=== PATIENT | male | born 1975 | race Caucasian/White ===

== ENCOUNTER 2016-12-21 14:34 | Observation (INO) | payer OTHER ==
[2016-12-21] MEDS ORDERED: SODIUM CHLORIDE 1,000 ML IV ONE (14:52)
--- NOTE | 2016-12-21 14:59 | PDOC ---
History of Present Illness - General History Source: Patient, Family Exam Limitations: No Limitations - History of Present Illness Initial Comments: 12/21/16 15:51 The patient is a 41 year old male presenting with family, with no significant past medical history, who presents to the emergency department with Left lower extremity numbness, dizziness, chest pain, shortness of breath and diaphoresis onset 1 hour prior to presentation. He states that he was outside eating and playing with his children when the symptoms began. He states that he rushed into the house where he lost consciousness while laying in the bed. He notes that he regained consciousness roughly 10 minutes later. He describes his chest pain as a burning sensation, moderate in severity, without radiation or modifying factors. Upon presentation the patient notes that all of his symptoms had resolved except for the left lower extremity numbness. He states that the numbness has alleviated and only has the numbness localized on the foot. He is unable to bend his knee. He denies ingestion alcohol, tobacco or drugs today. He denies any recent sickness and has been taking solids and liquids without any complications. He states that during the past 3 months he has lost 10 pounds and has been having persistent night sweats. The patient denies headache, fever, chills, nausea, vomit, diarrhea and constipation. Denies dysuria, frequency, urgency and hematuria. Allergies: None Past surgical history: None reported Social history: Denies alcohol, tobacco or drug use reported <Baldomero Diaz - Last Filed: 12/21/16 16:09> <Miles Rushing - Last Filed: 12/21/16 17:06> - General Chief Complaint: Weakness Stated Complaint: PARALYSIS Time Seen by Provider: 12/21/16 14:52 Past History <Baldomero Diaz - Last Filed: 12/21/16 16:09> - Past Medical History Thyroid Disease: No - Psycho/Social/Smoking Cessation Hx Anxiety: No Suicidal Ideation: No Smoking History: Never smoked Have you smoked in the past 12 months: No Information on smoking cessation initiated: No Hx Alcohol Use: No Drug/Substance Use Hx: No Substance Use Type: None <Miles Rushing - Last Filed: 12/21/16 17:06> - Past Medical History Allergies/Adverse Reactions: Allergies Allergy/AdvReac Type Severity Reaction Status Date / Time No Known Allergies Allergy Verified 04/29/17 14:49 Review of Systems - Review of Systems Constitutional: Yes: Night Sweats, Unexplained wgt Loss (10 lbs over 3 months). No: Chills, Fever HEENTM: No: Recent change in vision Respiratory: No: Cough, Shortness of Breath Cardiac (ROS): Yes: Chest Pain, Lightheadedness, Syncope. No: Edema ABD/GI: Yes: Nausea. No: Vomiting : No: Burning, Frequency Neurological: No: Headache Psychiatric: No: Anxiety, Depression All Other Systems: Reviewed and Negative <Miles Rushing - Last Filed: 12/21/16 17:06> *Physical Exam - Vital Signs Last Vital Signs Temp Pulse Resp BP Pulse Ox 90 18 144/99 100 12/21/16 14:35 12/21/16 14:35 12/21/16 14:35 12/21/16 14:35 - Physical Exam Comments: 12/21/16 15:38 GENERAL: The patient is awake, alert, and fully oriented, in no acute distress. HEAD: Normal with no signs of trauma. EYES: Pupils equal, round and reactive to light, extraocular movements intact, sclera anicteric, conjunctiva clear with no pallor. ENT: Ears normal, nares patent, oropharynx clear without exudates. Moist mucous membranes. NECK: Normal range of motion, supple without lymphadenopathy, JVD, or masses. LUNGS: Breath sounds equal, clear to auscultation bilaterally. No wheeze/ crackles. HEART: Regular rate and rhythm, normal S1 and S2 without murmur or rub. ABDOMEN: Soft/nontender/nondistended. BS wnl. No guarding or rebound. No palpable masses. No hepatosplenomegaly. EXTREMITIES: (+) Unable to flex his knee or plantar or flex his foot, no edema. No clubbing or cyanosis. No cords, erythema, or tenderness. Sensation decreased distal to the ankle, unable to sense touching or pain. Bounding dp and pt pulses. Easily palpable dp and pt pulses. NEUROLOGICAL: Cranial nerves II through XII grossly intact. Normal speech. PSYCH: Normal mood, normal affect. SKIN: Warm, Dry, normal turgor, no rashes or lesions noted. <Baldomero Diaz - Last Filed: 12/21/16 16:09> - Vital Signs Last Vital Signs Temp Pulse Resp BP Pulse Ox 90 18 144/99 100 12/21/16 14:35 12/21/16 14:35 12/21/16 14:35 12/21/16 14:35 <Miles Rushing - Last Filed: 12/21/16 17:06> Heart Score/ECG Review #1 ECG reviewed & interpreted by me at: 14:47 General ECG Interpretation: Sinus Rhythm, Normal Rate (86), Normal Intervals ( qtc 418, ? LVH, early repol), No acute ischemic changes <Miles Rushing - Last Filed: 12/21/16 17:06> ED Treatment Course - LABORATORY CBC & Chemistry Diagram: 12/21/16 14:59 12/21/16 14:59 - ADDITIONAL ORDERS Additional order review: Laboratory Results 12/21/16 12/21/16 12/21/16 15:00 14:59 14:59 INR Sodium Potassium Chloride Carbon Dioxide Anion Gap BUN Creatinine Creat Clearance w eGFR Random Glucose Calcium Magnesium Total Bilirubin AST ALT Total Protein Albumin Urine Color Ltyellow Urine Appearance Clear Urine pH 7.0 Ur Specific [place] 1.015 Urine Protein Negative Urine Glucose (UA) Negative Urine Ketones Trace H Urine Blood 1+ H Urine Nitrite Negative Urine Bilirubin Negative Urine Urobilinogen 2.0 e.u/dl Ur Leukocyte Esterase Negative Urine RBC 2 Urine WBC 1 Ur Epithelial Cells Rare Urine Mucus Rare Opiates Screen Negative Methadone Screen Negative Barbiturate Screen Negative Phencyclidine Screen Negative Ur Amphetamines Screen Negative MDMA (Ecstasy) Screen Negative Benzodiazepines Screen Negative Cocaine Screen Negative U Marijuana (THC) Screen Negative Alcohol, Quantitative 122.8 H* 12/21/16 12/21/16 14:59 14:59 INR 1.04 Sodium 144 Potassium 4.1 Chloride 109 H Carbon Dioxide 25 Anion Gap 10 BUN 14 Creatinine 1.1 Creat Clearance w eGFR > 60 Random Glucose 80 Calcium 8.5 Magnesium 2.4 Total Bilirubin 0.4 AST 28 ALT 52 Total Protein 7.1 Albumin 3.7 Urine Color Urine Appearance Urine pH Ur Specific [place] Urine Protein Urine Glucose (UA) Urine Ketones Urine Blood Urine Nitrite Urine Bilirubin Urine Urobilinogen Ur Leukocyte Esterase Urine RBC Urine WBC Ur Epithelial Cells Urine Mucus Opiates Screen Methadone Screen Barbiturate Screen Phencyclidine Screen Ur Amphetamines Screen MDMA (Ecstasy) Screen Benzodiazepines Screen Cocaine Screen U Marijuana (THC) Screen Alcohol, Quantitative 12/21/16 14:59 RBC 5.02 MCV 88.1 MCHC 32.9 RDW 13.7 MPV 8.0 Neutrophils % 36.4 L Lymphocytes % 42.0 H Monocytes % 14.9 H Eosinophils % 5.4 H Basophils % 1.3 - RADIOLOGY Radiograph Interpretation: 12/21/16 16:[address] Reviewed by: Dr. Leopoldo Galo Impression: No CT evidence of acute intracranial pathology. Mild to moderate mucosal thickening is seen within the partially visualized anterior ethmoid sinuses and left inferior frontal sinus. <Baldomero Diaz - Last Filed: 12/21/16 16:09> - LABORATORY CBC & Chemistry Diagram: 12/21/16 14:59 12/21/16 14:59 - RADIOLOGY Radiology Studies Ordered: Category Date Time Status HEAD CT WITHOUT CONTRAST [CT] Stat CT Scan 12/21/16 14:54 Ordered CHEST PA & LAT [RAD] Stat Radiology 12/21/16 14:53 Ordered SPINE-LUMBAR SACRAL [RAD] Stat Radiology 12/21/16 14:54 Ordered <Miles Rushing - Last Filed: 12/21/16 17:06> Medical Decision Making - Medical Decision Making 12/21/16 15:08 A portion of this note was documented by scribe services under my direction. I have reviewed the details of the note, within reason, and agree with the documentation with the following case summary and management plan written by me. Healthy 41-year-old male with no significant past medical history brought in by EMS for syncopal episode. Patient was in his usual state of normal health, was outside when he began feeling lightheaded, went inside and developed chest pain with diaphoresis and nausea and then loss of consciousness. The entire episode lasted 15-20 minutes, EMS was activated in the meantime, and he presents now without any complaints whatsoever except for left foot numbness and weakness. History of similar episodes, reports he saw his primary physician at [facility] this week, was felt to have possible depression. He denies any drug or alcohol intake, no reported seizure activity as per family member, but he does admit to night sweats over the last few weeks and 10 pound weight loss over the last 3 months. Afebrile. Vital signs normal. Alert and conversant, speaking full sentences clearly, in no acute distress Conjunctiva are slightly injected bilaterally, no jaundice Neck is supple Cardiopulmonary exam is normal Abdomen is benign Neurological exam is normal except for left lower extremity: Patient is unable to flex his left knee or dorsiflex/plantar flex his left foot. There is a sensory level below the ankle, loss of sensation to touch and pain. DP and TP pulses are easily palpable. 41-year-old male with syncopal episode, now with residual numbness and weakness in the LLE that does not follow any particular dermatome. Question seizure with partial Hong's paralysis, question focal brain neoplasm given the constitutional type symptoms, question cardiopulmonary etiology with syncope and vascular process in the lumbar spine? No indication for code zeng EKG shows no acute ischemic changes Labs, urinalysis including tox screen Chest x-ray, LS-spine x-ray, CT head Reassess 12/21/16 16:14 Labs are within normal limits, no leukocytosis, CK is normal and troponin is normal, urinalysis and urine tox are negative, alcohol level notably 123. CT shows some sinusitis but no intracranial pathology. Clinically improving, now able to flex his L knee, but still with motor/sensory deficit in the L foot. Approached pt about his etoh level - states he was drinking yesterday, not today. Denies daily etoh. Question now whether this was withdrawal seizure and hong's paralysis? Will admit for tele monitoring and further evaluation. Pt agrees. PMD in [place], will admit to [facility]. 12/21/16 17:04 Accepted for obs tele by Dr. Vásquez, signout given to FARHANA Evans. <Miles Rushing - Last Filed: 12/21/16 17:06> *DC/Admit/Observation/Transfer - Attestations Scribe Attestion: 12/21/16 15:38 Documentation prepared by Baldomero Diaz, acting as medical assistant dermatology for Miles Rushing MD <Baldomero Daiz - Last Filed: 12/21/16 16:09> - Discharge Dispostion Admit: Yes <Miles Rushing - Last Filed: 12/21/16 17:06> Diagnosis at time of Disposition: Syncope and collapse, Numbness of left foot - Discharge Dispostion Condition at time of disposition: Fair
[2016-12-21 15:14] LABS: BASOPHIL 1.3 % (0-2.0); EOSINOPHIL 5.4 % (0-4.5); MCHC 32.9 g/dl (32.0-35.9); MEAN CELL VOLUME 88.1 fl (80-96); NEUTROPHILS 36.4 % (42.8-82.8); PLATELET COUNT 191 K/MM3 (134-434); RDW 13.7 % (11.9-15.9); WHITE BLOOD COUNT 4.1 K/mm3 (4.0-10.0)
[2016-12-21 15:19] LABS: URINE APPEARANCE CLEAR; URINE BILIRUBIN NEGATIVE (NEGATIVE); URINE BLOOD 1+ (NEGATIVE); URINE COLOR LTYELLOW; URINE GLUCOSE (UA) NEGATIVE (NEGATIVE); URINE KETONE TRACE (NEGATIVE); URINE LEUK ESTERASE NEGATIVE (NEGATIVE); URINE NITRITE NEGATIVE (NEGATIVE); URINE PROTEIN NEGATIVE (NEGATIVE); URINE UROBILINOGEN 2.0 E.U/dl E.U./dl (0.2-1.0)
[2016-12-21 15:20] LABS: URINE MUCUS RARE; URINE RBC 2 /hpf (0-3); URINE WBC 1 /hpf (3-5)
[2016-12-21 15:25] LABS: INR 1.04 (0.82-1.09); PROTHROMBIN TIME (PATIENT) 11.4 SEC (9.98-11.88)
[2016-12-21 15:27] LABS: URINE MARIJUANA THC NEGATIVE ng/ml (CUTOFF=50)
[2016-12-21 15:33] LABS: ALBUMIN 3.7 g/dl (3.4-5.0); ANION GAP 10 (8-16); CALCIUM 8.5 mg/dL (8.5-10.1); CO2 25 mmol/L (21-32); GLUCOSE,RANDOM 80 mg/dL (74-106); MAGNESIUM 2.4 mg/dL (1.8-2.4)
[2016-12-21 15:36] LABS: BILIRUBIN,TOTAL 0.4 mg/dL (0.2-1.0); CREATININE 1.1 mg/dL (0.7-1.3); SGOT/AST 28 U/L (15-37); SGPT/ALT 52 U/L (12-78); TOT PROT 7.1 g/dl (6.4-8.2)
[2016-12-21 15:38] LABS: ALK PHOS 62 U/L (45-117); TROPONIN I < 0.02 ng/ml (0.00-0.05)
[2016-12-21] MEDS ORDERED: chlordiazePOXIDE HCL 25 MG CAPSULE PO ONE (16:23)
[2016-12-21] MEDS ORDERED: chlordiazePOXIDE HCL 25 MG CAPSULE ONE (16:57)
[2016-12-21] MEDS ORDERED: ACETAMINOPHEN 325 MG TABLET (FP) PO PRN (17:39)
--- NOTE | 2016-12-21 17:39 | HP ---
CHIEF COMPLAINT: snycope, chest pain, recent ETOH PCP: Not on service HISTORY OF PRESENT ILLNESS: The patient is a 41 year old male presenting with family, with no significant past medical history, who presents to the emergency department with Left lower extremity numbness, dizziness, chest pain, shortness of breath and diaphoresis onset 1 hour prior to presentation. He states that he was outside eating and playing with his children when the symptoms began. He states that he rushed into the house where he lost consciousness while laying in the bed. He notes that he regained consciousness roughly 10 minutes later. He describes his chest pain as a burning sensation, moderate in severity, without radiation or modifying factors. Upon presentation the patient notes that all of his symptoms had resolved except for the left lower extremity numbness. He states that the numbness has alleviated and only has the numbness localized on the foot. He is unable to bend his knee. He denies ingestion alcohol, tobacco or drugs today. He denies any recent sickness and has been taking solids and liquids without any complications. He states that during the past 3 months he has lost 10 pounds and has been having persistent night sweats. The patient denies headache, fever, chills, nausea, vomit, diarrhea and constipation. Denies dysuria, frequency, urgency and hematuria. During my interview, pt states his Legs feel fine currently, denies chest pain, no difficulty in ROM and denies pain. ER course was notable for: (1) left leg numbness, weakness and decreased strength. ? withdrawal seizure? (2) chest pain, r/o trop first one negative (3) syncope, head ct neg, EKG NSR Recent Travel: none PAST MEDICAL HISTORY: denies PAST SURGICAL HISTORY: denies Social History: Smoking:denies Alcohol:denies however found on tox screen Drugs: denies Family History: Allergies No Known Allergies Allergy (Verified 12/21/16 14:49) HOME MEDICATIONS: REVIEW OF SYSTEMS CONSTITUTIONAL: Absent: fever, chills, diaphoresis, , malaise, loss of appetite, weight change , (+) generalized weakness with more on the left side HEENT: Absent: rhinorrhea, nasal congestion, throat pain, throat swelling, difficulty swallowing, mouth swelling, ear pain, eye pain, visual changes CARDIOVASCULAR: Absent: palpitations, irregular heart rate, lightheadedness, peripheral edema, (+)chest pain, syncope, RESPIRATORY: Absent: cough, shortness of breath, dyspnea with exertion, orthopnea, wheezing, stridor, hemoptysis GASTROINTESTINAL: Absent: abdominal pain, abdominal distension, nausea, vomiting, diarrhea, constipation, melena, hematochezia GENITOURINARY: Absent: dysuria, frequency, urgency, hesitancy, hematuria, flank pain, genital pain MUSCULOSKELETAL: Absent: myalgia, arthralgia, joint swelling, back pain, neck pain SKIN: Absent: rash, itching, pallor HEMATOLOGIC/IMMUNOLOGIC: Absent: easy bleeding, easy bruising, lymphadenopathy, frequent infections ENDOCRINE: Absent: unexplained weight gain, unexplained weight loss, heat intolerance, cold intolerance NEUROLOGIC: Absent: headache, dizziness, unsteady gait, seizure, mental status changes, bladder or bowel incontinence, (+)focal weakness or paresthesias to the left side especially the left leg. PSYCHIATRIC: Absent: anxiety, depression, suicidal or homicidal ideation, hallucinations. PHYSICAL EXAMINATION Vital Signs - 24 hr 12/21/16 14:35 Pulse Rate 90 Respiratory 18 Rate Blood Pressure 144/99 O2 Sat by Pulse 100 Oximetry (%) GENERAL: Awake, alert, and fully oriented, in no acute distress. HEAD: Normal with no signs of trauma. EYES: Pupils equal, round and reactive to light, extraocular movements intact, sclera anicteric, conjunctiva clear. No lid lag. EARS, NOSE, THROAT: Ears normal, nares patent, oropharynx clear without exudates. Moist mucous membranes. NECK: Normal range of motion, supple without lymphadenopathy, JVD, or masses. LUNGS: Breath sounds equal, clear to auscultation bilaterally. No wheezes, and no crackles. No accessory muscle use. HEART: Regular rate and rhythm, normal S1 and S2 without murmur, rub or gallop. ABDOMEN: Soft, nontender, not distended, normoactive bowel sounds, no guarding, no rebound, no masses. No hepatomegaly or splenomegaly. MUSCULOSKELETAL: left side weak especially left foot. UPPER EXTREMITIES: 2+ pulses, warm, well-perfused. No cyanosis. No clubbing. No peripheral edema. LOWER EXTREMITIES: 2+ pulses, warm, well-perfused. No calf tenderness. No peripheral edema. now states sensation of LE has returned and good flexion and extension NEUROLOGICAL: Cranial nerves II-XII intact. Normal speech. Normal gait. PSYCHIATRIC: Cooperative. Good eye contact. Appropriate mood and affect. SKIN: Warm, dry, normal turgor, no rashes or lesions noted, normal capillary refill. Laboratory Results - last 24 hr 12/21/16 12/21/16 12/21/16 14:59 14:59 14:59 WBC 4.1 RBC 5.02 Hgb 14.5 Hct 44.3 MCV 88.1 MCHC 32.9 RDW 13.7 Plt Count 191 MPV 8.0 Neutrophils % 36.4 L Lymphocytes % 42.0 H Monocytes % 14.9 H Eosinophils % 5.4 H Basophils % 1.3 INR 1.04 Sodium 144 Potassium 4.1 Chloride 109 H Carbon Dioxide 25 Anion Gap 10 BUN 14 Creatinine 1.1 Creat Clearance w eGFR > 60 Random Glucose 80 Calcium 8.5 Magnesium 2.4 Total Bilirubin 0.4 AST 28 ALT 52 Alkaline Phosphatase 62 Creatine Kinase 192 Creatine Kinase Index 1.0 CK-MB (CK-2) 1.987 CK-MB (CK-2) Rel Index Troponin I < 0.02 Total Protein 7.1 Albumin 3.7 Urine Color Urine Appearance Urine pH Ur Specific [place] Urine Protein Urine Glucose (UA) Urine Ketones Urine Blood Urine Nitrite Urine Bilirubin Urine Urobilinogen Ur Leukocyte Esterase Urine RBC Urine WBC Ur Epithelial Cells Urine Mucus Opiates Screen Methadone Screen Barbiturate Screen Phencyclidine Screen Ur Amphetamines Screen MDMA (Ecstasy) Screen Benzodiazepines Screen Cocaine Screen U Marijuana (THC) Screen Alcohol, Quantitative Blood Type Antibody Screen 12/21/16 12/21/16 12/21/16 14:59 14:59 14:59 WBC RBC Hgb Hct MCV MCHC RDW Plt Count MPV Neutrophils % Lymphocytes % Monocytes % Eosinophils % Basophils % INR Sodium Potassium Chloride Carbon Dioxide Anion Gap BUN Creatinine Creat Clearance w eGFR Random Glucose Calcium Magnesium Total Bilirubin AST ALT Alkaline Phosphatase Creatine Kinase Creatine Kinase Index CK-MB (CK-2) CK-MB (CK-2) Rel Index Troponin I Total Protein Albumin Urine Color Urine Appearance Urine pH Ur Specific [place] Urine Protein Urine Glucose (UA) Urine Ketones Urine Blood Urine Nitrite Urine Bilirubin Urine Urobilinogen Ur Leukocyte Esterase Urine RBC Urine WBC Ur Epithelial Cells Urine Mucus Opiates Screen Negative Methadone Screen Negative Barbiturate Screen Negative Phencyclidine Screen Negative Ur Amphetamines Screen Negative MDMA (Ecstasy) Screen Negative Benzodiazepines Screen Negative Cocaine Screen Negative U Marijuana (THC) Screen Negative Alcohol, Quantitative 122.8 H* Blood Type B POSITIVE Antibody Screen Negative 12/21/16 12/21/16 14:59 15:00 WBC RBC Hgb Hct MCV MCHC RDW Plt Count MPV Neutrophils % Lymphocytes % Monocytes % Eosinophils % Basophils % INR Sodium Potassium Chloride Carbon Dioxide Anion Gap BUN Creatinine Creat Clearance w eGFR Random Glucose Calcium Magnesium Total Bilirubin AST ALT Alkaline Phosphatase Creatine Kinase Creatine Kinase Index CK-MB (CK-2) CK-MB (CK-2) Rel Index Cancelled Troponin I Total Protein Albumin Urine Color Ltyellow Urine Appearance Clear Urine pH 7.0 Ur Specific [place] 1.015 Urine Protein Negative Urine Glucose (UA) Negative Urine Ketones Trace H Urine Blood 1+ H Urine Nitrite Negative Urine Bilirubin Negative Urine Urobilinogen 2.0 e.u/dl Ur Leukocyte Esterase Negative Urine RBC 2 Urine WBC 1 Ur Epithelial Cells Rare Urine Mucus Rare Opiates Screen Methadone Screen Barbiturate Screen Phencyclidine Screen Ur Amphetamines Screen MDMA (Ecstasy) Screen Benzodiazepines Screen Cocaine Screen U Marijuana (THC) Screen Alcohol, Quantitative Blood Type Antibody Screen ASSESSMENT/PLAN: 41 yr old male with syncope, chest pain, with recent ETOH use presents with left side leg and foot weak, numb, sensation/ ? withdrawal focal seizure 1. syncope/? focal seizure -Head CT negative -EKG NSR, -observation telemetry for cardiac chest pain, sycope -observe for any changes and neuro status -Echo ordered -cards consult 2. chest pain -first trop negative -next trop in 8 and 16 hours -on telemetry 3. GI/DVT ppx 4. LE numb, decrease sensation - follow up xray series -neurology consult ordered. Visit type - Emergency Visit Emergency Visit: Yes ED Registration Date: 12/21/16 Care time: The patient presented to the Emergency Department on the above date and was hospitalized for further evaluation of their emergent condition. - New Patient This patient is new to me today: Yes Date on this admission: 12/21/16 - Critical Care Critical Care patient: No
[2016-12-21] MEDS ORDERED: RANITIDINE HCL 150 MG TABLET (FP) ONE (19:27)
[2016-12-21] MEDS: RANITIDINE HCL 150 MG TABLET (FP) PO SCH (20:00)
[2016-12-21] MEDS: SODIUM CHLORIDE 1,000 ML IV SCH (20:00)
[2016-12-21] MEDS ORDERED: chlordiazePOXIDE HCL 25 MG CAPSULE PO PRN (21:00)
[2016-12-21 23:40] LABS: TROPONIN I < 0.02 ng/ml (0.00-0.05)
[2016-12-22] MEDS: HEPARIN NA (PORCINE) 5,000 UNITS/ML 1ML VIAL SQ SCH ×2 (00:37→10:25)
[2016-12-22] MEDS ORDERED: HEPARIN NA (PORCINE) 5,000 UNITS/ML 1ML VIAL ONE (00:40)
[2016-12-22 08:03] LABS: BASOPHIL 0.6 % (0-2.0); EOSINOPHIL 4.7 % (0-4.5); MCH 29.1 pg (25.7-33.7); MCHC 32.9 g/dl (32.0-35.9); MEAN CELL VOLUME 88.2 fl (80-96); MEAN PLT VOLUME 8.6 fl (7.5-11.1); NEUTROPHILS 38.2 % (42.8-82.8); PLATELET COUNT 170 K/MM3 (134-434); RDW 13.7 % (11.9-15.9); WHITE BLOOD COUNT 4.3 K/mm3 (4.0-10.0)
[2016-12-22 08:23] LABS: ANION GAP 5 (8-16); CALCIUM 8.4 mg/dL (8.5-10.1); CO2 28 mmol/L (21-32); GLUCOSE,RANDOM 79 mg/dL (74-106)
[2016-12-22 08:31] LABS: CREATININE 0.9 mg/dL (0.7-1.3); MAGNESIUM 2.1 mg/dL (1.8-2.4); PHOSPHOROUS 2.8 mg/dL (2.5-4.9); TROPONIN I < 0.02 ng/ml (0.00-0.05)
[2016-12-22 09:09] VITALS: TEMP 97.4
[2016-12-22] MEDS: RANITIDINE HCL 150 MG TABLET (FP) PO SCH (10:26)
[2016-12-22] MEDS: SODIUM CHLORIDE 1,000 ML IV SCH (13:15)
--- NOTE | 2016-12-22 13:25 | CON.CARD ---
Consult Consult Specialty:: Cardiology Referred by:: Hospitalist Reason for Consultation:: Cardiac evaluation - History of Present Illness Chief Complaint: Syncope History of Present Illness: Patient is a 41 year old male with no significant PMH who presented to ED with left lower extremity numbness and lost consciousness after playing with his children in the yard. He was eating and playing with his children when he developed dizziness, chest pain and shortness of breath. He rushed into the house where he lost consciousness. He did not suffer any injuries. He denies palpitations. He denies paroxysmal nocturnal dyspnea or orthopnea. He denies fever or chills. He denies headache or lightheadedness. He complains of numbness of left lower extremity still, but states that it has improved compared to yesterday. Cardiology consultation was called for further evaluation. - History Source History Provided By: Patient, Medical Record Limitations to Obtaining History: No Limitations - Past Surgical History Past Surgical History: Yes: None - Alcohol/Substance Use Hx Alcohol Use: Yes (Social) History of Substance Use: reports: None - Smoking History Smoking history: Never smoked Have you smoked in the past 12 months: No Home Medications - Allergies Allergies/Adverse Reactions: Allergies Allergy/AdvReac Type Severity Reaction Status Date / Time No Known Allergies Allergy Verified 12/21/16 14:49 - Home Medications Home Medications: Ambulatory Orders NK [No Known Home Medication] 12/22/16 Family Disease History - Family Disease History Other Family History: CAD Review of Systems - Review of Systems Constitutional: denies: Chills, Fever Cardiovascular: reports: Chest Pain, Shortness of Breath. denies: Palpitations Respiratory: reports: SOB. denies: Cough, Hemoptysis, Orthopnea, PND Gastrointestinal: denies: Abdominal Pain, Constipation, Diarrhea, Melena, Nausea , Rectal Bleeding, Vomiting Genitourinary: denies: Dysuria Neurological: reports: Dizziness, Syncope. denies: Change in Speech, Confusion , Headache, Numbness, Parasthesia, Seizure, Tremors, Unsteady Gait, Weakness Vital Signs: Vital Signs Temperature 97.4 F L 12/22/16 09:07 Pulse Rate 69 12/22/16 13:13 Respiratory Rate 18 12/22/16 13:13 Blood Pressure 130/83 12/22/16 13:13 O2 Sat by Pulse Oximetry (%) 97 12/22/16 05:03 Neck: Yes: Supple Respiratory: Yes: CTA Bilaterally Gastrointestinal: Yes: Normal Bowel Sounds, Soft. No: Tenderness Cardiovascular: Yes: Regular Rate and Rhythm JVD: No Carotid Bruit: No PMI: Non-Displaced Heart Sounds: Yes: S1, S2. No: Gallop Murmur: No: Systolic Murmur, Diastolic Murmur Edema: No - Other Data Labs, Other Data: CBC, BMP 12/22/16 06:00 12/22/16 06:00 INR, PTT INR 1.04 (0.82-1.09) 12/21/16 14:59 Troponin, BNP 12/21/16 12/22/16 23:10 06:00 Troponin I < 0.02 < 0.02 Sinus rhythm Imaging - Results Chest X-ray: Report Reviewed (Unremarkable) Cat Scan: Report Reviewed (Head CT unremarkable) EKG: Report Reviewed Problem List - Problems (1) Numbness of left foot Code(s): R20.8 - OTHER DISTURBANCES OF SKIN SENSATION (2) Syncope and collapse Code(s): R55 - SYNCOPE AND COLLAPSE Assessment/Plan 1. Syncope, unclear etiology - possible vasovagal 2. Chest pain - atypical 3. LLE numbness PLAN: 1. Serial cardiac enzymes negative - patient was seen this am and examined. Hospitalist input noted stating patient signing out AMA 2. Transthoracic echocardiography to assess LV and valvular function was recommended this morning which should be done as outpatient. Further cardiac work up including stress testing may be considered. Neurology evaluation may also be considered 3. Patient is to follow up with his MD Jan Villela MD
[2016-12-22 16:02] VITALS: BP 140/80; PULSE 118; BMI 23.1
--- NOTE | 2016-12-22 16:27 | DS ---
Physical Exam: SUBJECTIVE: Patient seen and examined in ED. Ambulating. States feels well and wants to go home. OBJECTIVE: Vital Signs Period Temp Pulse Resp BP Sys/Castellon Pulse Ox Last 24 Hr 97.4 F-97.9 F 69-118 16-18 130-140/78-89 97-99 PHYSICAL EXAM GENERAL: The patient is awake, alert, and fully oriented, in no acute distress. HEAD: Normal with no signs of trauma. EYES: PERRL, extraocular movements intact, sclera anicteric, conjunctiva clear. LUNGS: Breath sounds equal, clear to auscultation bilaterally, no wheezes, no crackles, no accessory muscle use. HEART: Regular rate and rhythm, S1, S2 without murmur, rub or gallop. ABDOMEN: Soft, nontender, nondistended, normoactive bowel sounds, no guarding, no rebound, no hepatosplenomegaly, no masses. EXTREMITIES: 2+ pulses, warm, well-perfused, no edema. NEUROLOGICAL: Cranial nerves II through XII grossly intact. Normal speech, steady gait. LABS Laboratory Results - last 24 hr 12/21/16 12/21/16 12/22/16 23:10 23:10 06:00 WBC 4.3 RBC 4.80 Hgb 13.9 Hct 42.3 MCV 88.2 MCHC 32.9 RDW 13.7 Plt Count 170 MPV 8.6 Neutrophils % 38.2 L Lymphocytes % 44.1 H Monocytes % 12.4 H Eosinophils % 4.7 H Basophils % 0.6 Sodium Potassium Chloride Carbon Dioxide Anion Gap BUN Creatinine POC Glucometer Random Glucose Calcium Phosphorus Magnesium Creatine Kinase 168 CK-MB (CK-2) Rel Index Cancelled Troponin I < 0.02 Alcohol, Quantitative 12/22/16 12/22/16 12/22/16 06:00 06:00 10:49 WBC RBC Hgb Hct MCV MCHC RDW Plt Count MPV Neutrophils % Lymphocytes % Monocytes % Eosinophils % Basophils % Sodium 144 Potassium 3.7 Chloride 111 H Carbon Dioxide 28 Anion Gap 5 L BUN 12 Creatinine 0.9 POC Glucometer [id number] Random Glucose 79 Calcium 8.4 L Phosphorus 2.8 Magnesium 2.1 Creatine Kinase CK-MB (CK-2) Rel Index Troponin I < 0.02 Alcohol, Quantitative < 5.0 HOSPITAL COURSE: Date of Admission:12/21/16 Date of Discharge: 12/22/16 Pre hospital course The patient is a 41 year old male presenting with family, with no significant past medical history, who presents to the emergency department with Left lower extremity numbness, dizziness, chest pain, shortness of breath and diaphoresis onset 1 hour prior to presentation. He states that he was outside eating and playing with his children when the symptoms began. He states that he rushed into the house where he lost consciousness while laying in the bed. He notes that he regained consciousness roughly 10 minutes later. He describes his chest pain as a burning sensation, moderate in severity, without radiation or modifying factors. Upon presentation the patient notes that all of his symptoms had resolved except for the left lower extremity numbness. He states that the numbness has alleviated and only has the numbness localized on the foot. He is unable to bend his knee. He denies ingestion alcohol, tobacco or drugs today. He denies any recent sickness and has been taking solids and liquids without any complications. He states that during the past 3 months he has lost 10 pounds and has been having persistent night sweats. The patient denied headache, fever, chills, nausea, vomit, diarrhea and constipation. Denied dysuria, frequency, urgency and hematuria. ER course was notable for: (1) left leg numbness, weakness and decreased strength. ? withdrawal seizure? (2) chest pain, r/o trop first one negative (3) syncope, head ct neg, EKG NSR Subsequent hospital course Patient reports complete resolution of all symptoms including LLE numbness. He wants to leave and states he will follow up with his doctor in [place] tomorrow. Explained to patient not all tests have come back and I did not yet have the cardiology's recommendations. Patient stated he was leaving. Patient advised or risks of leaving including syncope, stroke, heart attack, and . Patient signed out AMA. Minutes to complete discharge: 35 Discharge Summary Reason For Visit: SYNCOP L FOOT NUMBNESS Current Active Problems Numbness of left foot (Acute) Syncope and collapse (Acute) Condition: Stable - Instructions Disposition: AGAINST MEDICAL ADVICE - Home Medications Comprehensive Discharge Medication List: Ambulatory Orders NK [No Known Home Medication] 12/22/16 This patient is new to me today: Yes Date on this admission: 12/22/16 Emergency Visit: Yes ED Registration Date: 04/29/17 Care time: The patient presented to the Emergency Department on the above date and was hospitalized for further evaluation of their emergent condition. Critical Care patient: No - Discharge Referral Referred to [facility] No
--- NOTE | 2016-12-23 00:09 | EKG ---
Test Reason : Blood Pressure : / mmHG Vent. Rate : 086 BPM Atrial Rate : 086 BPM P-R Int : 170 ms QRS Dur : 094 ms QT Int : 350 ms P-R-T Axes : 071 038 029 degrees QTc Int : 418 ms NORMAL SINUS RHYTHM MINIMAL VOLTAGE CRITERIA FOR LVH, MAY BE NORMAL VARIANT BORDERLINE ECG NO PREVIOUS ECGS AVAILABLE Confirmed by ESTHER MARROQUIN MD ([id number]) on 12/23/2016 12:09:27 AM Referred By: Confirmed By:ESTHER MARROQUIN MD
== END 2016-12-22 16:00 | disposition left against medical advice (07) ==
LOC: JER 14:34 → JERBED 17:07
PROVIDERS: ADMIT Internal Medicine; ATTEND Nurse Practitioner Family
PROC: 3E0337Z Introduction of Electrolytic and Water Balance Substance into Peripheral Vein, Percutaneous Approach (ICD-10-PCS; principal; 2016-12-21)
PROC: 3E013GC Introduction of Other Therapeutic Substance into Subcutaneous Tissue, Percutaneous Approach (ICD-10-PCS; 2016-12-21)
DX: R55 Syncope and collapse (principal); R20.0 Anesthesia of skin; R07.9 Chest pain, unspecified; R53.1 Weakness
CPT/HCPCS: 36415; 70450-TC; 71020-TC; 72100-TC; 80048; 80053; 80307; 81003; 81015; 82550; 82553; 83735; 84100; 84484; 85025; 85610; 86850; 86900; 86901; 93005; 93010; 99285-25; G0378; J1644

== ENCOUNTER 2022-03-29 15:19 | Emergency (ER) | payer OTHER ==
[2022-03-29 15:23] VITALS: BP 133/88; PULSE 81; RESP 18; TEMP 97; BMI 24.3
[2022-03-29] MEDS ORDERED: KETOROLAC TROMETHAMINE 30 MG/1 ML VIAL ONE (17:16)
[2022-03-29] MEDS: KETOROLAC TROMETHAMINE 30 MG/1 ML VIAL IM ONE ×2 (17:17→17:27)
[2022-03-29] MEDS ORDERED: IBUPROFEN 600 MG TABLET (FP) PO ONE (17:25)
== END 2022-03-29 18:49 | disposition home or self-care (01) ==
LOC: JER 15:19 → JERFT 15:19
PROC: 3E0233Z Introduction of Anti-inflammatory into Muscle, Percutaneous Approach (ICD-10-PCS; principal; 2022-03-29)
DX: L52 Erythema nodosum (principal)
CPT/HCPCS: 73562-TC-LT-FY; 99284-25